=== PATIENT | female | born 1995 | race Caucasian/White ===

== ENCOUNTER 2017-12-31 20:24 | Emergency (ER) | payer OTHER, SELFPAY ==
[2017-12-31] MEDS ORDERED: Fentanyl 100 MCG/2 ML VIAL ONE (20:28)
[2017-12-31 21:16] LABS: #Basophils 0.1 thou/uL (0.0-0.2); #Eosinphils 0.3 thou/uL (0.0-0.7); #Lymphocytes 2.4 thou/uL (1.20-3.40); #Monocytes 1.2 thou/uL (0.11-0.59); #Neutrophils 9.7 thou/uL (1.40-6.50); %Basophils 0.4 % (0.0-1.0); %Eosinophils 1.9 % (0.0-10.0); %Lymphocytes 17.3 % (21.0-51.0); %Monocytes 8.9 % (0.0-10.0); %Neutrophils 71.4 % (42.0-75.0); Hemoglobin 14.8 g/dL (12.0-16.0); Mean Corpuscular HGB CONC 34.2 g/dL (32.0-36.0); Mean Corpuscular Hemoglobin 31.4 pg (27.0-31.0); Mean Platelet Volume 6.8 fL (7.4-10.4); Platelet Count 311 thou/uL (130-400); RBC Distribution Width 11.6 % (11.5-14.5); Red Blood Cell (RBC) Count 4.71 mill/uL (4.20-5.40); White Blood Cell (WBC) Count 13.6 thou/uL (4.8-10.8)
[2017-12-31 21:18] LABS: ALT (SGPT) 24 U/L (8-55); AST (SGOT) 24 U/L (5-34); Albumin 4.5 g/dL (3.5-5.0); Alcohol Less than 10 mg/dL (Less than 10); Alkaline Phosphatase 58 U/L (40-150); Anion Gap 15 mmol/L (10-20); BUN (Urea Nitrogen) 12 mg/dL (7.0-18.7); Bilirubin, Total 0.5 mg/dL (0.2-1.2); Calc. Creatinine Clearance 0 mL/min (70-130); Calcium 9.6 mg/dL (7.8-10.44); Carbon Dioxide 18 mmol/L (22-29); Chloride 108 mmol/L (98-107); Estimated GFR-MDRD 61; Globulin 2.6 g/dL (2.4-3.5); Glucose 93 mg/dL (70-105); Lipase 30 U/L (8-78); Potassium 3.8 mmol/L (3.5-5.1); Protein, Total 7.1 g/dL (6.0-8.3); Sodium 137 mmol/L (136-145)
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
[2017-12-31 21:21] LABS: INR-International Normal Ratio 1.1; PTT 26.8 SEC (22.9-36.1); Prothrombin Time 14.3 SEC (12.0-14.7)
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
--- NOTE | 2017-12-31 21:35 | RAD ---
LEFT SHOULDER TWO VIEW SERIES: INDICATIONS: Post reduction. FINDINGS: There is mild cortical irregularity involving the medial aspect of the left humeral head, suspicious for an impaction type fracture. IMPRESSION: Slight cortical irregularity at the humeral head, suspicious for impaction fracture. Recommend clini mckinley correlation. Imaging followup may also prove useful. Notification of results placed at 2118 hours on 12/31/2017. CODE CR POS: [facility]
--- NOTE | 2017-12-31 21:37 | RAD ---
LEFT SHOULDER TWO VIEWS: INDICATIONS: Injury. Pain. FINDINGS: Subtle cortical irregularity at the expected region of the greater tuberosity is present, although th is area is superimposed upon bone, limiting visualization. IMPRESSION: Suspicion for fracture centered at the greater tuberosity of the proximal left humerus. POS: [facility]
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
[2017-12-31 22:54] LABS: Bilirubin Negative (Negative); Blood, Urine Negative (Negative); Clarity CLOUDY (Clear); Glucose, Urine (Dipstick) Negative (Negative); Leukocyte Negative (Negative); Nitrite Negative (Negative); Protein, Urine (Dipstick) 30 mg/dL (Neg-Trace); Specific Gravity, Urine 1.035 (1.002-1.036)
[2017-12-31 22:55] LABS: Bacteria/HPF 1+ HPF (None Seen); Pathc Cast-AUWi Flag 1.45 (0-2.49)
[2017-12-31 22:56] LABS: Hyaline Casts/LPF 0-3 HYALINE CAST LPF (0-3 Hyaline); RBC/HPF 0-3 HPF (0-3)
[2017-12-31 23:03] LABS: Amphetamine Detected (NotDetected); Barbiturates Screen Not Detected (NotDetected); Benzodiazepine Screen Not Detected (NotDetected); Cocaine Metabolite Screen Not Detected (NotDetected); Medtox Control Line Valid? VALID (VALID); Medtox Reader # READER 1; Methadone Not Detected (NotDetected); Methamphetamine Detected (NotDetected); Opiate Screen Not Detected (NotDetected); Oxycodone Screen Not Detected (NotDetected); Phencyclidine (PCP) Not Detected (NotDetected); THC/Cannabinoid Screen Not Detected (NotDetected); Tricyclic Screen Not Detected (NotDetected)
== END 2017-12-31 23:52 | disposition home or self-care (01) ==
LOC: ERS 20:24
DX: S42.292A Other displaced fracture of upper end of left humerus, initial encounter for closed fracture (principal); V89.2XXA Person injured in unspecified motor-vehicle accident, traffic, initial encounter
CPT/HCPCS: 23650; 36415; 70450; 71045; 72125; 72170; 80053; 80306; 80307; 81003; 81015; 83690; 84702; 85025; 85610; 85730; 86850; 86900; 86901; 96374; 99156; G0390; J3010

== ENCOUNTER 2019-06-01 10:47 | Day surgery (SDC) | payer MEDICAID, OTHER ==
[2019-06-01] MEDS ORDERED: Lactated Ringer's 1,000 ML IV SCH (11:00)
[2019-06-01] MEDS ORDERED: Betamet Acet/Betamet Na Ph 30 MG/5 ML VIAL IM SCH (11:00)
[2019-06-01] MEDS ORDERED: Betamet Acet/Betamet Na Ph 30 MG/5 ML VIAL ONE (11:32)
[2019-06-01 13:55] VITALS: BMI 30.2
--- NOTE | 2019-06-01 14:09 | PDOC.LDHP ---
Labor and Delivery H&P Chief complaint: other (irregular heart beat) HPI: 24 y/o G1 at 30w5d presents from clinic for irregular heart beat noted on doppler. Per Dr. Mccoy, ultrasound was performed at [facility] and noted to have normal growth at 23%ile, normal dopplers, and breech. Denies VB, LOF, ctx, or other complaints. +FM. ROS neg for HEENT, cv, pulm, gi, gu, neuro, psych, skin, musculoskeletal or constitutional symptoms other than mentioned above. OB History Details: None Current complications: none Past Medical History: None Current medications: pre-naren vitamins Previous surgical history: none Allergies/Adverse Reactions: Allergies Allergy/AdvReac Type Severity Reaction Status Date / Time No Known Allergies Allergy Verified 06/01/19 13:47 Social history: none - Physical Exam Vital signs reviewed and normal: yes General: NAD, resting Lungs: nonlabored breathing Abdomen: gravid Extremeties: no edema FHT: category 1 (140s, mod variability, + accels, no visible decels) [place] contractions every: occasional - Assessment 24 y/o G1 at 30w5d with audible decelerations to 70s at irregular intervals lasting 10-[address] Mccoy spoke with [facility] who feels that it sounds like PACs and will have her follow up outpatient. - Plan -: D/c home with precautions. Advised to avoid caffeine, chocolate, and cocoa butter. Follow up with Dr. Mccoy as advised.
== END 2019-06-01 15:08 | disposition home health service (06) ==
LOC: L&D/OP 10:47
PROVIDERS: ATTEND Student in an Organized Health Care Education/Training Program
DX: O36.8330 Maternal care for abnormalities of the fetal heart rate or rhythm, third trimester, not applicable or unspecified (principal); O32.1XX0 Maternal care for breech presentation, not applicable or unspecified; Z3A.30 30 weeks gestation of pregnancy
CPT/HCPCS: 96360; 96361; 96372; 99282; J0702

== ENCOUNTER 2019-06-02 12:13 | Day surgery (SDC) | payer MEDICAID, OTHER ==
[2019-06-02 12:21] VITALS: BMI 30.2
[2019-06-02] MEDS ORDERED: hydrALAZINE 20 MG/ML VIAL SLOW IVP PRN (13:09)
--- NOTE | 2019-06-02 13:11 | PDOC.LDHP ---
Labor and Delivery H&P Chief complaint: other (Here for second celestone from Dr dawn for possible brief FHR arryhmia, not dexter now) HPI: 24 yo G1 with EDC 08/06...30 weeks with one episode FHR abnormality in clinic...sent for celestone to be conservative and had MFM follow up. Review of Systems: complete list done and as per HPI Current gestational age (weeks): 30 Due date: 08/06/19 Dating criteria: last menstrual period Grav: 1 Current complications: none Abnormal US findings: No Current medications: pre- vitamins Allergies/Adverse Reactions: Allergies Allergy/AdvReac Type Severity Reaction Status Date / Time No Known Allergies Allergy Verified 06/02/19 12:18 Social history: none - Physical Exam Vital signs reviewed and normal: yes (121/61 90 18) General: NAD Heart: RRR Lungs: CTAB Abdomen: gravid Extremeties: no edema FHT: category 1 [place] contractions every: none - Assessment 30 weeks here for NST and celestone #2 for isolated, now apparently resolved, FHR arrythmia. Has MFM follow up - Plan Plan: observation in L&D (NST reactive; second celestone; no evidence of maternal compromise at this time)
[2019-06-02] MEDS ORDERED: Betamet Acet/Betamet Na Ph 30 MG/5 ML VIAL IM SCH (13:15)
== END 2019-06-02 13:21 | disposition home health service (06) ==
LOC: L&D/OP 12:13
PROVIDERS: ATTEND Student in an Organized Health Care Education/Training Program
DX: Z29.8 Encounter for other specified prophylactic measures (principal); O36.8330 Maternal care for abnormalities of the fetal heart rate or rhythm, third trimester, not applicable or unspecified; Z3A.30 30 weeks gestation of pregnancy
CPT/HCPCS: 96372; 99282; J0702

== ENCOUNTER 2019-08-07 19:15 | Inpatient (IN) | payer OTHER ==
[2019-08-17] MEDS ORDERED: Promethazine HCl 25 MG/ML VIAL IM PRN ×2 (04:22→09:40)
[2019-08-17] MEDS ORDERED: Ondansetron PF 4 MG/2 ML Vial IVP PRN ×2 (04:22→09:40)
[2019-08-17] MEDS ORDERED: NS / Oxytocin 40 units/1000ml 1,000 ML IV PRN (04:22)
[2019-08-17] MEDS ORDERED: Zolpidem Tartrate 5 MG TAB PO PRN (04:22)
[2019-08-17] MEDS ORDERED: Lidocaine 1% (PF) 30 ML VIAL SC PRN (04:22)
[2019-08-17] MEDS ORDERED: Carboprost 250 MCG/ML AMP IM PRN (04:22)
[2019-08-17] MEDS ORDERED: Misoprostol 200 MCG TAB PR PRN (04:22)
[2019-08-17] MEDS ORDERED: HYDROcodone/Acetaminophen 5/325 mg Tablet PO PRN (04:22)
[2019-08-17] MEDS ORDERED: hydrALAZINE 20 MG/ML VIAL SLOW IVP PRN (04:22)
[2019-08-17] MEDS ORDERED: Ibuprofen 800 MG TAB PO PRN (04:22)
[2019-08-17] MEDS ORDERED: Methylergonovine 0.2 MG/ML VIAL IM PRN (04:22)
[2019-08-17] MEDS ORDERED: Diphenoxylate HCl/Atropine Tablet PO PRN (04:22)
[2019-08-17] MEDS ORDERED: Butorphanol Tartrate 1 MG/ML VIAL SLOW IVP PRN (04:22)
[2019-08-17] MEDS ORDERED: Acetaminophen 500 MG TAB PO PRN (04:22)
[2019-08-17] MEDS: Lactated Ringer's 1,000 ML IV SCH ×3 (04:40→18:38)
[2019-08-17 05:00] LABS: Hemoglobin 13.3 g/dL (12.0-16.0); Mean Corpuscular HGB CONC 34.7 g/dL (32.0-36.0); Mean Corpuscular Hemoglobin 31.6 pg (27.0-31.0); Mean Platelet Volume 8.8 fL (7.4-10.4); Platelet Count 182 thou/uL (130-400); RBC Distribution Width 12.1 % (11.5-14.5); Red Blood Cell (RBC) Count 4.21 mill/uL (4.20-5.40); White Blood Cell (WBC) Count 7.5 thou/uL (4.8-10.8)
[2019-08-17] MEDS: Misoprostol 100 MCG TAB VAG SCH ×3 (05:31→20:53)
[2019-08-17 05:41] LABS: HBSAg Index 0.13 S/CO (0-0.99); Hep B Surf Ag Non-Reactive S/CO (NonReactive)
[2019-08-17 05:42] LABS: Syphilis Antibody Nonreactive (Nonreactive); Syphilis Antibody Index 0.11 S/CO (<1.00 Non-Reactive)
[2019-08-17 05:47] VITALS: BMI 32.1
--- NOTE | 2019-08-17 08:15 | PDOC.LDHP ---
Labor and Delivery H&P Chief complaint: scheduled induction HPI: 24yo at 41w5d by LMP here for postdate IOL. Some contractions. Current gestational age (weeks): 41 Due date: 08/05/19 Dating criteria: last menstrual period Grav: 1 Para: 0 Current complications: none Abnormal US findings: No Past Medical History: denies Current medications: pre-naren vitamins Previous surgical history: none Allergies/Adverse Reactions: Allergies Allergy/AdvReac Type Severity Reaction Status Date / Time No Known Allergies Allergy Verified 06/02/19 12:18 Social history: none (h/o meth use) - Physical Exam Vital signs reviewed and normal: yes General: NAD Heart: RRR Lungs: CTAB Abdomen: gravid Extremeties: no edema FHT: category 1 [place] contractions every: 3min - Vaginal Exam cm dilated: 3 Effacement: 50% Station: -2 (arom scant clear) - OB Labs Blood type: A RH: positive Antibody Screen: negative HIV: negative RPR: negative HEPSAg: negative 1 hour GCT: negative GBS: negative Urine drug screen: negative Rubella: immune - Assessment L&D Assessment: medically indicated induction - Plan Plan: admit to L&D, cervical ripening, labor augmentation if indicated, informed consent obtained, anesthesia consult for pain management
[2019-08-17 08:17] LABS: Amphetamine Not Detected (NotDetected); Barbiturates Screen Not Detected (NotDetected); Benzodiazepine Screen Not Detected (NotDetected); Cocaine Metabolite Screen Not Detected (NotDetected); Medtox Control Line Valid? VALID (VALID); Medtox Reader # READER 4; Methadone Not Detected (NotDetected); Methamphetamine Not Detected (NotDetected); Opiate Screen Not Detected (NotDetected); Oxycodone Screen Not Detected (NotDetected); Phencyclidine (PCP) Not Detected (NotDetected); THC/Cannabinoid Screen Not Detected (NotDetected); Tricyclic Screen Not Detected (NotDetected)
[2019-08-17] MEDS ORDERED: Fentanyl 4 mcg/Bup 0.1% Cadd 100 ML ONE ×3 (08:48→19:42)
[2019-08-17] MEDS ORDERED: Naloxone HCl 0.4 mg/ml Vial IVP PRN ×2 (09:40)
[2019-08-17] MEDS ORDERED: diphenhydrAMINE 50 MG/ML VIAL IVP PRN (09:40)
[2019-08-17] MEDS ORDERED: ePHEDrine/0.9% NaCl/PF SYRINGE 50 mg/10 ml SLOW IVP PRN (09:40)
[2019-08-17] MEDS ORDERED: Lactated Ringer's 500 ML IV PRN (09:40)
[2019-08-17] MEDS ORDERED: Communication Order-Pharmacy FS SCH (09:45)
[2019-08-17] MEDS: NS w/ Oxytocin 10 units 500 ML IV SCH (10:01)
[2019-08-17] MEDS: Fentanyl 4 mcg/Bupivacaine 0.1% Cassette 100 ML EPIDURAL SCH ×2 (10:02→15:01)
[2019-08-17] MEDS ORDERED: Hydrocerin (Eucerin) Cream 120 gm Jar ONE (13:02)
[2019-08-17] MEDS ORDERED: Calcium Carbonate 500 MG ChewTAB PO PRN (15:48)
[2019-08-17] MEDS ORDERED: Calcium Carbonate 500 MG ChewTAB PO SCH (16:00)
[2019-08-17] MEDS: Acetaminophen 325 MG TAB PO PRN (18:29)
--- NOTE | 2019-08-17 20:29 | PDOC.EVN ---
Event Note - Event Note Event Note: Dr Mccoy has ask me to assume care of MS Gissell christine. SVE station fetus ULISES. fetus has a baseline 130s with mod ltv and early decelerations. she is dejan q2min with internal monitoring.
--- NOTE | 2019-08-17 23:42 | PDOC.EVN ---
Event Note - Event Note Event Note: pt has spike temp 103. starting tylenol amp/gent. sve8/100/+1
[2019-08-17] MEDS ORDERED: Gentamicin 20 MG/2 ML PF (Neonates) IVPB SCH (23:45)
[2019-08-17] MEDS: Ampicillin 2 GM in Sodium Chloride 0.9% 100 ML IVPB SCH (23:50)
[2019-08-17] MEDS: Acetaminophen 500 MG TAB PO PRN (23:50)
[2019-08-17] MEDS ORDERED: AMPicillin 2 GM in Dextrose 5% in Water 100 ML IVPB SCH (23:59)
[2019-08-18] MEDS: Gentamicin Sulfate 300 MG in Sodium Chloride 0.9% 100 ML IVPB SCH (00:37)
[2019-08-18 01:46] LABS: Actual Bicarbonate (HCO3v) 18 mEq/L (22-28); Base Excess -9.3 mEq/L (-2.0 to +3.0)
[2019-08-18 01:53] LABS: pH (Cord, venous) 7.23 (7.32-7.43)
[2019-08-18] MEDS: Acetaminophen 325 MG TAB PO PRN (04:21)
[2019-08-18] MEDS ORDERED: Bisacodyl 10 MG SUPP PR PRN (07:10)
[2019-08-18] MEDS ORDERED: NS / Oxytocin 40 units/1000ml 1,000 ML IV SCH (07:10)
[2019-08-18] MEDS ORDERED: Lanolin Ointment 7 GM TUBE TOP PRN (07:10)
[2019-08-18] MEDS ORDERED: hydrALAZINE 20 MG/ML VIAL SLOW IVP PRN (07:10)
[2019-08-18] MEDS ORDERED: Adacel (T-DAP) 0.5 ML SYRINGE IM ONE (07:10)
[2019-08-18] MEDS ORDERED: Milk Of Magnesia 30 ML UDCUP PO PRN (07:10)
--- NOTE | 2019-08-18 08:06 | DN ---
DATE OF PROCEDURE: 08/18/2019 DATE OF DELIVERY: 08/18/2019. HOSPITAL COURSE: The patient delivered a male at 41 weeks and 5 days gestation by a term spontaneous vaginal delivery on 08/18/2019 at 0124 hours. Delivery was complicated by nuchal cord x2 and a shoulder dystocia that resolved with Luisito and suprapubic pressure. The dystocia was present for approximately 45 seconds. The weight is 3401 g. Apgars were 6, 8, and 9. Placenta delivered spontaneously followed by Pitocin infusion. There were no lacerations. Estimated blood loss, [address] Rivero is the delivering physician. Mother and baby were stable in the room in the immediate . Labor course was complicated by chorioamnionitis with a T-max of 103, and is moving both upper extremities. Job ID: [id number]
[2019-08-18] MEDS: Ferrous Sulfate 325 MG TAB PO SCH ×2 (08:43→16:45)
[2019-08-18] MEDS: Prenatal Vitamin 1 TAB PO SCH (09:21)
[2019-08-18] MEDS: Docusate Calcium (SURFAK) 240 MG CAP PO SCH ×2 (09:21→21:29)
[2019-08-18] MEDS: Ampicillin 2 GM in Sodium Chloride 0.9% 100 ML IVPB SCH ×3 (09:24→18:03)
[2019-08-18] MEDS: Acetaminophen 500 MG TAB PO PRN (11:29)
[2019-08-18] MEDS: Ibuprofen 800 MG TAB PO SCH ×2 (13:21→21:29)
[2019-08-18] MEDS: Misoprostol 100 MCG TAB VAG SCH ×2 (13:51→13:52)
[2019-08-18] MEDS: Lactated Ringer's 1,000 ML IV SCH ×2 (13:51→20:28)
[2019-08-18] MEDS: NS w/ Oxytocin 10 units 500 ML IV SCH (13:52)
[2019-08-19] MEDS: Ampicillin 2 GM in Sodium Chloride 0.9% 100 ML IVPB SCH ×2 (00:08→05:40)
[2019-08-19] MEDS: Gentamicin Sulfate 300 MG in Sodium Chloride 0.9% 100 ML IVPB SCH (00:47)
[2019-08-19] MEDS: Lactated Ringer's 1,000 ML IV SCH ×3 (00:53→21:44)
[2019-08-19 05:26] LABS: #Eosinphils 0.5 thou/uL (0.0-0.7); #Lymphocytes 1.1 thou/uL (1.20-3.40); #Monocytes 0.8 thou/uL (0.11-0.59); #Neutrophils 9.7 thou/uL (1.40-6.50); %Basophils 0.2 % (0.0-1.0); %Eosinophils 3.9 % (0.0-10.0); %Lymphocytes 9.3 % (21.0-51.0); %Monocytes 6.5 % (0.0-10.0); %Neutrophils 80.1 % (42.0-75.0); Hemoglobin 11.8 g/dL (12.0-16.0); Mean Corpuscular HGB CONC 33.4 g/dL (32.0-36.0); Mean Corpuscular Hemoglobin 31.2 pg (27.0-31.0); Mean Corpuscular Volume 93.6 fL (78.0-98.0); Mean Platelet Volume 8.9 fL (7.4-10.4); Platelet Count 142 thou/uL (130-400); RBC Distribution Width 12.4 % (11.5-14.5); Red Blood Cell (RBC) Count 3.77 mill/uL (4.20-5.40); White Blood Cell (WBC) Count 12.1 thou/uL (4.8-10.8)
[2019-08-19] MEDS: Ibuprofen 800 MG TAB PO SCH ×3 (05:40→22:52)
[2019-08-19] MEDS ORDERED: Sodium Chloride 0.9% 10 ML ONE (07:11)
--- NOTE | 2019-08-19 07:40 | PDOC.PP ---
Post Progress Note Post Day #: 1 Subjective: Patient is ambulating well, showered x2 yesterday. Afebrile >24 hours. States she is having occasional cramping pain and would like something stronger than the ibuprofen. Bleeding about like menses and has been decreasing. PO intake tolerated: yes Flatus: yes Ambulation: yes Vital Signs (12 hours) Temp Pulse Resp BP BP Pulse Ox 08/19/19 00:08 98.0 F 65 18 95/55 L 99 08/18/19 19:39 98.4 F 72 18 114/60 97 Weight Weight 77.111 kg - Physical Examination General: NAD Cardiovascular: no m/r/g, RRR Respiratory: clear to auscultation bilaterally, non-labored breathing Abdominal: + bowel sounds, no distention, appropriately TTP Fundus firm & at: 1 cm below umbilicus Extremities: negative homans (B) Neurological: no gross focal deficits Psychiatric: A&Ox3, normal affect Result Diagrams: 08/19/19 05:06 Additional Labs: Post Labs Blood Type A POSITIVE 08/17/19 04:51 Hep Bs Antigen Non-Reactive S/CO (NonReactive) 08/17/19 04:51 (1) Chorioamnionitis Code(s): O41.1290 - CHORIOAMNIONITIS, UNSP TRIMESTER, NOT APPLICABLE OR UNSP Status: Acute (2) care and examination Code(s): Z39.2 - ENCOUNTER FOR ROUTINE FOLLOW-UP Status: Acute - Assessment/Plan #PPD 1 - delivered at 40.5 wks by - will keep her one more day and plan for d/c home tomorrow #IAI - completed 24 hours of amp/gent, d/c'd 08/19 - has been afebrile >24 hours
[2019-08-19] MEDS: Ferrous Sulfate 325 MG TAB PO SCH ×2 (08:02→16:41)
[2019-08-19] MEDS: Prenatal Vitamin 1 TAB PO SCH (08:16)
[2019-08-19] MEDS: Acetaminophen 500 MG TAB PO PRN ×3 (08:16→20:09)
[2019-08-19] MEDS: Docusate Calcium (SURFAK) 240 MG CAP PO SCH ×2 (08:16→22:52)
[2019-08-20] MEDS: Ibuprofen 800 MG TAB PO SCH ×2 (06:26→13:48)
[2019-08-20] MEDS: Lactated Ringer's 1,000 ML IV SCH ×2 (06:26→12:24)
[2019-08-20] MEDS: Prenatal Vitamin 1 TAB PO SCH (08:05)
[2019-08-20] MEDS: Docusate Calcium (SURFAK) 240 MG CAP PO SCH (08:05)
[2019-08-20 08:10] VITALS: BP 115/57; TEMP 97.9
[2019-08-20] MEDS: Ferrous Sulfate 325 MG TAB PO SCH ×2 (09:01→16:11)
--- NOTE | 2019-08-20 10:38 | PDOC.PP ---
Post Progress Note Post Day #: 2 PO intake tolerated: yes Flatus: yes Ambulation: yes Vital Signs (12 hours) Temp Pulse Resp BP BP Pulse Ox 08/20/19 08:09 97.9 F 63 20 115/57 L 98 08/20/19 07:52 97.9 F 63 20 115/57 L 98 08/20/19 00:17 58 L 18 109/60 Weight Weight 170 lb - Physical Examination General: NAD Respiratory: non-labored breathing Abdominal: no distention, appropriately TTP Fundus firm & at: umb Skin: no rash Neurological: no gross focal deficits Psychiatric: normal affect Result Diagrams: 08/19/19 05:06 Additional Labs: Post Labs Blood Type A POSITIVE 08/17/19 04:51 Hep Bs Antigen Non-Reactive S/CO (NonReactive) 08/17/19 04:51 - Assessment/Plan PPD2 s/p TSVD VSSAF Doing well, lochia < menses Rh pos RImm DC home FU 6w
== END 2019-08-20 17:35 | disposition home or self-care (01) | DRG 805 ==
LOC: L&D 08-17 04:07 → 3SE 08-18 03:19
PROVIDERS: ADMIT Student in an Organized Health Care Education/Training Program; ATTEND Student in an Organized Health Care Education/Training Program
PROC: 10E0XZZ Delivery of Products of Conception, External Approach (ICD-10-PCS; principal; 2019-08-18)
PROC: 3E033VJ Introduction of Other Hormone into Peripheral Vein, Percutaneous Approach (ICD-10-PCS; 2019-08-18)
DX: O66.0 Obstructed labor due to shoulder dystocia (principal); O41.1230 Chorioamnionitis, third trimester, not applicable or unspecified; Z37.0 Single live birth; O69.1XX0 Labor and delivery complicated by cord around neck, with compression, not applicable or unspecified; Z3A.41 41 weeks gestation of pregnancy
CPT/HCPCS: 36415; 51702; 80306; 82805; 85025; 85027; 86780; 86850; 86900; 86901; 87340; 88307; J0290; J1580; J2405; J2590; J3490